=== PATIENT | female | born 1945 | race Caucasian/White ===

== ENCOUNTER 2020-04-14 07:40 | Day surgery (SDC) | payer MEDICARE, BC ==
[~2020-04-14 07:40] MED LIST: Lactated Ringers 1,000 ML IV SCH; Sodium Chloride 0.9% 10 ML SDV IV PRN; Sodium Chloride 0.9% 10 ML Syringe FLUSH PRN; Sodium Chloride 0.9% 2.5 ML Syringe FLUSH PRN
[2020-04-14] MEDS ORDERED: fentaNYL 100 MCG/2 ML SDV ONE (07:46)
[2020-04-14] MEDS ORDERED: Ondansetron 4 MG/2 ML SDV ONE (07:46)
[2020-04-14] MEDS ORDERED: Midazolam 1 MG/ML 2 ML SDV ONE (07:46)
[2020-04-14] MEDS ORDERED: Propofol 200 MG/20 ML SDV ONE (07:46)
--- NOTE | 2020-04-14 08:39 | PCM.PREANE ---
Preanesthetic Assessment - Anesthesia/Transfusion/Family Hx Anesthesia History: Prior Anesthesia Without Reaction Family History of Anesthesia Reaction: No Transfusion History: Prior Transfusion Without Reaction - Review of Systems General: No Symptoms Pulmonary: No Symptoms Cardiovascular: No Symptoms Gastrointestinal: Other (heartburn) Neurological: No Symptoms Other: Reports: None - Physical Assessment NPO Status Date: 04/13/20 Height: 5 ft 2 in Weight: 65.771 kg ASA Class: 2 Mental Status: Alert & Oriented x3 Airway Class: Mallampati = 2 Dentition: Reports: Normal Dentition ROM/Head Extension: Full Lungs: Clear to Auscultation, Normal Respiratory Effort Cardiovascular: Regular Rate, Regular Rhythm - Allergies Allergies/Adverse Reactions: Allergies Allergy/AdvReac Type Severity Reaction Status Date / Time No Known Allergies Allergy Verified 04/09/20 11:36 - Blood Blood Available: No - Anesthesia Plan Pre-Op Medication Ordered: None - Acknowledgements Anesthesia Type Planned: General Anesthesia (tiva) Pt an Appropriate Candidate for the Planned Anesthesia: Yes Alternatives and Risks of Anesthesia Discussed w Pt/Guardian: Yes Pt/Guardian Understands and Agrees with Anesthesia Plan: Yes Additional Comments: PMH: cva 3 years ago, gerd, hld, htn PreAnesthesia Questionnaire HEENT History: Reports: Impaired Vision Other HEENT History: wears glasses Cardiovascular History: Reports: High Cholesterol, Hypertension Respiratory History: Other Respiratory History: occasional cough x2 years, chest x-ray clear, inhaler prescribed 2 years ago, "never uses", "it is now outdated" Gastrointestinal History: Reports: GERD, Irritable Bowel Syndrome Genitourinary History: Reports: None Musculoskeletal History: Other Musculoskeletal History: hx fx rt arm Neurological History: Reports: CVA Other Neuro History: CVA 2 years, no residual Psychiatric History: Reports: None Endocrine/Metabolic History: Reports: None Hematologic History: Reports: None Immunologic History: Reports: None Oncologic (Cancer) History: Reports: None Dermatologic History: Reports: None - Infectious Disease History Infectious Disease History: Reports: Chicken Pox, Measles, Mumps - Past Surgical History Head Surgeries/Procedures: Reports: Other (See Below) HEENT Surgical History: Reports: Other (See Below) Other HEENT Surgeries/Procedures: facial surgeries x6 as a teenager Cardiovascular Surgical History: Reports: None Respiratory Surgical History: Reports: None GI Surgical History: Reports: Appendectomy, Cholecystectomy, Colonoscopy, EGD Female Surgical History: Reports: Hysterectomy Endocrine Surgical History: Reports: None Neurological Surgical History: Reports: None Musculoskeletal Surgical History: Reports: Other (See Below) Other Musculoskeletal Surgeries/Procedures:: facial surgeries x6 as a teenager Oncologic Surgical History: Reports: None Dermatological Surgical History: Reports: None - SUBSTANCE USE Smoking Status *Q: Never Smoker Recreational Drug Use History: No - HOME MEDS Home Medications: Home Meds Alendronate Sodium 70 mg PO WEEKLY 04/09/20 [History] Aspirin [Adult Low Dose Aspirin EC] 81 mg PO BID 04/09/20 [History] Famotidine 40 mg PO BEDTIME 04/09/20 [History] Losartan Potassium 100 mg PO BEDTIME 04/09/20 [History] Multivitamin 1 tab PO DAILY 04/09/20 [History] amLODIPine Besylate [Amlodipine Besylate] 5 mg PO BEDTIME 04/09/20 [History] atorvaSTATin [Lipitor] 80 mg PO BEDTIME 04/09/20 [History] - CURRENT (IN HOUSE) MEDS Current Meds: Current Medications Lactated Ringer's (Ringers, Lactated) 1,000 mls @ 125 mls/hr IV ASDIRECTED KATI Sodium Chloride (Saline Flush) 10 ml FLUSH ASDIRECTED PRN PRN Reason: Keep Vein Open Sodium Chloride (Saline Flush) 2.5 ml FLUSH ASDIRECTED PRN PRN Reason: Keep Vein Open Sodium Chloride (Saline Flush) 10 ml FLUSH ASDIRECTED PRN PRN Reason: Keep Vein Open Sodium Chloride (Saline Flush) 2.5 ml FLUSH ASDIRECTED PRN PRN Reason: Keep Vein Open Sodium Chloride (Normal Saline) 10 ml IV ASDIRECTED PRN PRN Reason: IV Use Discontinued Medications Fentanyl (Sublimaze) Confirm Administered Dose 100 mcg .ROUTE .STK-MED ONE Stop: 04/14/20 07:47 Midazolam HCl (Versed 1 Mg/Ml) Confirm Administered Dose 2 mg .ROUTE .STK-MED ONE Stop: 04/14/20 07:47 Ondansetron HCl (Zofran) Confirm Administered Dose 4 mg .ROUTE .STK-MED ONE Stop: 04/14/20 07:47 Propofol (Diprivan 20 Ml) Confirm Administered Dose 200 mg .ROUTE .STK-MED ONE Stop: 04/14/20 07:47
--- NOTE | 2020-04-14 10:14 | PCM.OPNOTE ---
- General Post-Op/Procedure Note Date of Surgery/Procedure: 04/14/20 Operative Procedure(s): Screening colonoscopy-incomplete Findings: Narrowed area of colon at 20 cm. Multiple diverticula in area. Otherwise normal appearing rectum. Grade IV hemorrhoids Pre Op Diagnosis: Screening colonoscopy Post-Op Diagnosis: 1) Grade IV hemorrhoids. 2) Diverticulosis Anesthesia Technique: MAC Primary Surgeon: Radha Gonzalez Condition: Good
--- NOTE | 2020-04-14 10:26 | PCM.POSTAN ---
POST ANESTHESIA ASSESSMENT - MENTAL STATUS Mental Status: Alert - VITAL SIGNS Vital Signs: Last Vital Signs Temp 36.4 C 04/14/20 10:12 Pulse 65 04/14/20 10:17 Resp 12 04/14/20 10:17 BP 104/85 04/14/20 10:17 Pulse Ox 97 04/14/20 10:17 - RESPIRATORY Respiratory Status: Respiratory Rate WNL - CARDIOVASCULAR CV Status: Pulse Rate WNL - GASTROINTESTINAL GI Status: No Symptoms - PAIN Pain Score: 1 (Cramping) - POST OP HYDRATION Hydration Status: Adequate & Stable - OBSERVATIONS Free Text/Narrative:: Doing well.
[2020-04-14 13:13] VITALS: BP 103/60; PULSE 69
--- NOTE | 2020-04-14 13:40 | PCM48HPAN ---
Post Anesthesia Note - EVALUATION WITHIN 48HRS OF ANESTHETIC Vital Signs in Normal Range: Yes Patient Participated in Evaluation: Yes Respiratory Function Stable: Yes Airway Patent: Yes Cardiovascular Function Stable: Yes Hydration Status Stable: Yes Pain Control Satisfactory: Yes Nausea and Vomiting Control Satisfactory: Yes Mental Status Recovered: Yes Vital Signs: Last Vital Signs Temp 98.2 F 04/14/20 10:30 Pulse 69 04/14/20 10:45 Resp 16 04/14/20 10:45 BP 103/60 04/14/20 10:45 Pulse Ox 96 04/14/20 10:45
--- NOTE | 2020-04-14 21:39 | OR ---
SURGEON: RADHA GONZALEZ MD DATE OF PROCEDURE: 04/14/2020 PREOPERATIVE DIAGNOSIS: Screening colonoscopy. POSTOPERATIVE DIAGNOSES: 1. Grade 4 hemorrhoids. 2. Diverticulosis. 3. Luminal narrowing of the distal sigmoid colon. PROCEDURE PERFORMED: Screening colonoscopy, incomplete. PRIMARY SURGEON: Radha Gonzalez MD ANESTHESIA: Monitored anesthesia care. INSTRUMENT USED: Olympus colonoscope. EXTENT OF EXAM: 20 cm from the anus. PREPARATION: Good. LIMITATION: Narrowed lumen of the colon. INDICATION: The patient is a 74-year-old female who presented for a 10-year screening colonoscopy. She and I discussed the procedure, expected perioperative course, and the risks including bleeding, infection, or damage to surrounding structures including perforation. The patient verbalized understanding and wishes to proceed. PROCEDURE IN DETAIL: The patient was brought into the OR on the OR cart and placed in a left lateral decubitus position. A time-out was completed verifying the patient's name, age, date of , allergies, and procedure to be performed. Monitored anesthesia care was induced and continuous oxygen was provided via nasal cannula throughout the procedure. After adequate sedation was achieved, a digital rectal exam was performed. The exam revealed grade 4 hemorrhoids. A well-lubricated colonoscope was inserted in the rectum and I attempted to advance this under direct visualization through the colon. At 20 cm from the anus, the patient was noted to have multiple diverticula. The colon was tortuous, and at this level, the colon appeared narrowed. There was no evidence of any irregular tissue in the area, just multiple diverticula. I attempted to apply pressure to the patient's abdomen and try scoping her with her in a supine position. No matter what I did, I was unable to pass the scope past this area. The decision was made to abort any further attempt at advancing the scope. I then fully withdrew while carefully examining the distal sigmoid colon as well as the rectum. The mucosa all appeared normal. The scope was brought into the rectum and retroflexed to allow visualization of the anal canal opening. Again, I noted enlarged hemorrhoids and a photograph was taken. Scope was straightened out and fully withdrawn. The patient tolerated the procedure well and was transferred to the PACU in stable condition. ENDOSCOPIC DIAGNOSES: 1. Diverticulosis. 2. Grade 4 hemorrhoids. 3. Luminal narrowing of the distal sigmoid colon. RECOMMENDATIONS: I visited with the patient in the postoperative area regarding why I was unable to complete her colonoscopy today. We will schedule the patient for an outpatient barium enema and see her in clinic after this is completed. LIN BERMAN /[id number]
== END 2020-04-14 11:52 | disposition home or self-care (01) ==
LOC: MW.SDS 07:40
PROVIDERS: ATTEND Surgery
DX: Z12.11 Encounter for screening for malignant neoplasm of colon (principal); K64.3 Fourth degree hemorrhoids; K57.30 Diverticulosis of large intestine without perforation or abscess without bleeding; K56.699 Other intestinal obstruction unspecified as to partial versus complete obstruction; K21.9 Gastro-esophageal reflux disease without esophagitis; E78.5 Hyperlipidemia, unspecified; I10 Essential (primary) hypertension; E78.00 Pure hypercholesterolemia, unspecified; Z79.899 Other long term (current) drug therapy; Z79.82 Long term (current) use of aspirin; Z98.890 Other specified postprocedural states
CPT/HCPCS: G0121; J2250; J2405; J2704; J3010; J7120